=== PATIENT | female | born 1995 | race Caucasian/White ===

== ENCOUNTER 2019-09-15 08:14 | Outpatient (CLI) | payer BC, SELFPAY ==
--- NOTE | ~2019-09-15 | US_ITS ---
EXAMINATION: US breast RT limited HISTORY: Palpable lumps of the upper outer quadrant of the right breast TECHNIQUE: Limited right breast ultrasound is performed. COMPARISON: 01/19/2018, 05/16/2016 FINDINGS: There is no evidence of focal abnormal cystic or solid mass in the vicinity of the reported palpable abnormality of concern in the right breast. IMPRESSION: No specific sonographic correlate is identified for the reported palpable abnormality of concern. Fur ther evaluation at this time should be based on clinical assessment. Continued follow-up physical exa mination is recommended. BI-RADS Category 1: Negative Reviewed, dictated and finalized at location A. IMPRESSION: No specific sonographic correlate is identified for the reported palpable abnor mality of concern. Further evaluation at this time should be based on clinical assessment. Continued follow-up physical examination is recommended. BI-RADS Category 1: Negative
== END 2019-09-15 08:15 ==
LOC: MICIMG 08:15
PROVIDERS: Visit Provider Nurse Practitioner
DX: N63.11 Unspecified lump in the right breast, upper outer quadrant (principal)
CPT/HCPCS: 76642

== ENCOUNTER 2019-10-27 10:18 | Outpatient (CLI) | payer BC, SELFPAY ==
--- NOTE | ~2019-10-27 | US_ITS ---
EXAMINATION: US right upper quadrant EXAM DATE: 10/27/2019 11:03 INDICATION: Right upper quadrant pain. TECHNIQUE: Multiple grayscale and Doppler images of the abdomen right upper quadrant were obtained (b y a technologist who performed the scan) and subsequently reviewed. Comparison is made to prior exami nation from 01/29/2013. FINDINGS: The pancreatic head and body are normal in appearance. The pancreatic tail is not visualized. The l iver has normal echogenicity and contour. There are no focal liver lesions identified. There is no evidence of intrahepatic biliary duct dilation. Portal venous flow was seen in the hepatopedal, nor mal direction and has normal Doppler waveform. No right-sided hydronephrosis. Common bile duct measures 3 mm, which is normal. The gallbladder wall is normal in thickness, with ex pected amount of distention. No sonographic evidence of pericholecystic fluid. There is no cholelit hiases. Technologist performing exam reports patient did not demonstrate sonographic Solorzano's sign. Please note that this sign is less reliable in patients who have received pain medication. IMPRESSION: Unremarkable abdominal ultrasound exam. Reviewed, dictated and finalized at location B.
== END 2019-10-27 10:19 | disposition home or self-care (01) ==
LOC: ANHIMG 10:33
PROVIDERS: PCP Physician Assistant; Visit Provider Physician Assistant
DX: R10.11 Right upper quadrant pain (principal)
CPT/HCPCS: 76705

== ENCOUNTER → 2022-03-30 08:42 | Outpatient (CLI) | payer OTHER, SELFPAY ==
--- NOTE | ~2022-03-30 | US_ITS ---
EXAMINATION: US pelvic complete DATE: 03/30/2022 09:02 INDICATION: Intrauterine device placement. Can't feel strings. TECHNIQUE: Multiple transabdominal and transvaginal sonographic images of the pelvis were obtained. COMPARISON: Ultrasound 03/02/2019 FINDINGS: TRANSABDOMINAL ULTRASOUND: The uterus measures 10.8 x 3.2 x 5.2 cm. There is no free fluid in the pelvis. TRANSVAGINAL ULTRASOUND: The endometrial complex measures 7 mm in thickness. There is an intrauterine device in expected posit ion. The right ovary measures 2.5 x 1.3 x 2.3 cm. The left ovary measures 2.8 x 1.3 x 3.6 cm. IMPRESSION: 1. Intrauterine device in expected position. Reviewed, dictated and finalized at location A. TARY TECHNICIAN
== END ==
PROVIDERS: PCP Family Medicine; Visit Provider Nurse Practitioner
DX: Z30.431 Encounter for routine checking of intrauterine contraceptive device (principal)
CPT/HCPCS: 76856

== ENCOUNTER 2022-08-29 14:31 | Outpatient (CLI) | payer OTHER, SELFPAY ==
--- NOTE | ~2022-08-29 | US_ITS ---
EXAMINATION: US OB <= 14 weeks fetus DATE: 08/29/2022 14:53 INDICATION: Uncertain gestational dates TECHNIQUE: Real-time transabdominal and transvaginal obstetric ultrasound. FINDINGS: No prior studies for comparison. The uterus measures 12.4 x 6.1 x 7.3 cm. There is an intrauterine gestational sac, with pole id entified. The crown rump length measures 2.3 cm, which correlates with a estimated gestational age o f 9 weeks 0 days. heart tones are identified measuring 161 bpm. There is a small subchorionic hemorrhage measuring 10 x 3 x 4 mm. The ovaries are within normal limits. IMPRESSION: 1. SL IUP with an EGA of 9 weeks, 0 days (EDC by current ultrasound of 04/03/2023). 2: Small subchorionic hemorrhage measuring 10 x 3 x 4 mm. Reviewed, dictated and finalized at location L. IMPRESSION: 1. SL IUP with an EGA of 9 weeks, 0 days (EDC by current ultrasound of ). 2: Small subchorionic hemorrhage measuring 10 x 3 x 4 mm.
== END 2022-08-29 14:32 ==
PROVIDERS: PCP Obstetrics & Gynecology Gynecology; Visit Provider Obstetrics & Gynecology Gynecology
DX: Z36.87 Encounter for antenatal screening for uncertain dates (principal); Z3A.09 9 weeks gestation of pregnancy
CPT/HCPCS: 76801

== ENCOUNTER → 2022-09-19 15:03 | Outpatient (CLI) | payer OTHER, SELFPAY ==
--- NOTE | ~2022-09-19 | US_ITS ---
EXAMINATION: US OB limited DATE: 09/19/2022 15:25 INDICATION: Subchorionic hematoma follow-up, first trimester TECHNIQUE: Real-time ultrasound of the pelvis was performed. The interpreting radiologist was not pre sent for the study. COMPARISON: 08/29/2022 FINDINGS: The uterus measures 15.9 x 7.3 x 9.3 cm. There is an intrauterine gestational sac. No persi stent subchorionic hematoma is identified. heart motion is identified measuring 155 beats per m inute (bpm) by M-mode Doppler. IMPRESSION: 1. No persistent subchorionic hematoma identified. Reviewed, dictated and finalized at location L.
== END ==
PROVIDERS: PCP Obstetrics & Gynecology Gynecology; Visit Provider Obstetrics & Gynecology Gynecology
DX: O46.90 Antepartum hemorrhage, unspecified, unspecified trimester (principal); Z3A.00 Weeks of gestation of pregnancy not specified
CPT/HCPCS: 76815

== ENCOUNTER → 2022-11-05 09:16 | Outpatient (CLI) | payer OTHER, SELFPAY ==
--- NOTE | ~2022-11-05 | US_ITS ---
EXAMINATION: US OB /maternal detail DATE: 11/05/2022 10:03 INDICATION: Encounter for screening TECHNIQUE: Multiple obstetric sonographic images performed. COMPARISON: 08/29/2022 FINDINGS: There is a single living fetus in vertex presentation. The placenta is posterior and not low-lying w ith caudal margin >7 cm from the internal cervical os. Normal cervical length of 4.0 cm. Amniotic flu id volume is subjectively normal. The following anatomy was identified as normal: Ventricles, choroid plexus, falx and cava septum pellucidum Cerebellum and cisterna magna Nuchal fold Upper lip Spine Heart Diaphragm Stomach Kidneys Bladder 3 vessel cord and cord insertion Bilateral upper and lower extremities including hands and feet The following biometric data were obtained: BPD: 4.3 cm -> 19 weeks 0 days Head circumference: 16.6 cm -> 19 weeks 2 days Abdominal circumference: 13.5 cm -> 18 weeks 6 days Femur length: 2.7 cm -> 18 weeks 2 days These measurements are concordant. Head circumference to abdominal circumference ratio: 1.23 (normal range 1.09-1.26). Estimated weight: 253 g (+/-) 38 g. or 9 oz. (+/-) 1 oz. IMPRESSION: 1. Single living fetus with vertex presentation with heart rate of 138 bpm. 2. Biometric data concordant within 1 day of the previously estimated gestational age by ultrasound o f 18 weeks 5 day(s) with ultrasound estimated date of delivery (SEBASTIAN) of 04/03/2023 based upon ultrasou nd performed on 08/29/2022. Estimated weight is 45th percentile by Hadlock criteria when 04/03/19 24 is used as the SEBASTIAN. Please correlate with clinical information or earlier ultrasounds for most acc urate SEBASTIAN. 3. Normal survey. Reviewed, dictated and finalized at location A. IMPRESSION: 1. Single living fetus with vertex presentation with heart rate of 138 b pm. 2. Biometric data concordant within 1 day of the previously estimated gestation al age by ultrasound of 18 weeks 5 day(s) with ultrasound estimated date of del emelyn (SEBASTIAN) of 04/03/2023 based upon ultrasound performed on 08/29/2022. Estimate d weight is 45th percentile by Hadlock criteria when 04/03/2023 is used as the SEBASTIAN. Please correlate with clinical information or earlier ultrasounds for most accurate SEBASTIAN. 3. Normal survey.
== END ==
PROVIDERS: PCP Obstetrics & Gynecology Gynecology; Visit Provider Obstetrics & Gynecology Gynecology
DX: Z36.9 Encounter for antenatal screening, unspecified (principal); Z3A.18 18 weeks gestation of pregnancy
CPT/HCPCS: 76805

== ENCOUNTER → 2023-01-27 08:49 | Outpatient (CLI) | payer BC, SELFPAY ==
--- NOTE | ~2023-01-27 | US_ITS ---
EXAMINATION: US OB follow up DATE: 01/27/2023 09:13 INDICATION: Tobacco use during TECHNIQUE: Real-time transabdominal obstetric ultrasound. FINDINGS: Comparison to multiple prior studies sequentially, with oldest reviewed study dated 023. There is a single living fetus in vertex presentation. The placenta is fundal/posterior without plac enta previa. cardiac activity and movement is noted with a heart rate of 135 beats per minute. T he amniotic fluid volume is normal. CELIA measures 16.4 cm. The following biometric data were obtained: BPD: 82mm corresponds to gestational age 33 weeks 1 days. Head circumference: 302mm corresponds to gestational age 33 weeks 4 days. Abdominal circumference: 274mm corresponds to gestational age 31 weeks 3 days. Femur length: 61mm corresponds to gestational age 31 weeks 5 days. Estimated weight: 1859grams +/- 279grams, 81.7%. IMPRESSION: 1. Single living intrauterine in vertex presentation with an estimated gestational age of 30 weeks 4 days by inititial ultrasound. Appropriate interval growth. 2. Normal placenta. Reviewed, dictated and finalized at location B. CAT OPERATOR IMPRESSION: 1. Single living intrauterine in vertex presentation with an estimat ed gestational age of 30 weeks 4 days by inititial ultrasound. Appropriate int erval growth. 2. Normal placenta.
== END ==
PROVIDERS: PCP Advanced Practice Midwife; Visit Provider Advanced Practice Midwife
DX: O99.330 Smoking (tobacco) complicating pregnancy, unspecified trimester (principal); Z3A.30 30 weeks gestation of pregnancy
CPT/HCPCS: 76816

== ENCOUNTER 2023-03-12 10:11 | Outpatient (CLI) | payer BC, SELFPAY ==
--- NOTE | ~2023-03-12 | US_ITS ---
EXAMINATION: US OB follow up DATE: 03/12/2023 10:43 INDICATION: Size greater than dates. TECHNIQUE: Real-time ultrasound of the pelvis was performed. COMPARISON: Ultrasound 01/27/2023, 08/29/22 FINDINGS: There is a single living fetus in vertex presentation. The placenta is fundal and posterior. h eart rate is 130 beats per minute (bpm). The amniotic fluid index is 12.7 cm, which is normal. The following biometric data were obtained: Biparietal diameter (BPD): 9.2 cm; head circumference (HC): 32.4 cm; abdominal circumference (AC): 11 .0 cm; femur length (FL): 6.9 cm. These measurements are concordant. Estimated weight is 2960 g +/- 444 g, which correlates with the 46th percentile when 04/03/23 is used as estimated date of delivery. As single measurements, these parameters are each equal to the following estimated gestational ages: BPD: 37 weeks 2 days. HC: 36 weeks 5 days. AC: 36 weeks 5 days. FL: 35 weeks 4 days. estimated gestational age based solely on measurements from this exam is 36 weeks 4 days +/- 2 weeks 4 days. IMPRESSION: 1. Single living fetus in vertex presentation. 2. Estimated weight is 2960 g +/- 444 g, which correlates with the 46th percentile when 4 is used as estimated date of delivery. This date was set by ultrasound on 08/29/2022. Reviewed, dictated and finalized at location E. UCT SAFETY COORDINATOR IMPRESSION: 1. Single living fetus in vertex presentation. 2. Estimated weight is 2960 g +/- 444 g, which correlates with the 46th percentile when 04/03/23 is used as estimated date of delivery. This date was se t by ultrasound on 08/29/2022.
== END 2023-03-12 10:12 ==
LOC: MICIMG 10:12
PROVIDERS: PCP Advanced Practice Midwife; Visit Provider Advanced Practice Midwife
DX: O36.63X0 Maternal care for excessive fetal growth, third trimester, not applicable or unspecified (principal); Z3A.36 36 weeks gestation of pregnancy
CPT/HCPCS: 76816

== ENCOUNTER 2023-03-28 05:05 | Inpatient (IN) | payer BC, SELFPAY ==
[2023-03-28] VITALS (127 sets, daily range): BP systolic 46–236; BP diastolic 30–184; PULSE 30–224; RESP 16–20; TEMP 36.3–37.3; O2SAT 45–100
[2023-03-28 06:10] LABS: Basophils Percent Auto 0.3 % (0.2-1.2); Eosinophils Percent Auto 0.4 % (0-4.4); Hematocrit 36.1 % (37.0-47.0); Hemoglobin 11.2 g/dL (12.0-15.0); Immature Granulocyte Absolute 0.03 K/mm3 (0.00-0.031); Immature Granulocyte Percent A 0.4 % (0-0.5); Lymphocytes Absolute Auto 1.43 K/mm3 (0.9-3.2); Lymphocytes Percent Auto 19.2 % (18.3-44.2); Mean Corpuscular Volume 90.3 fl (80-100); Mean Platelet Volume 12.5 fl (7.4-10.4); Monocytes Absolute Auto 0.3 K/mm3 (0.1-0.6); Monocytes Percent Auto 3.8 % (2.6-8.5); Neutrophils Absolute Auto 5.6 K/mm3 (1.3-6.7); Neutrophils Percent Auto 75.9 % (45.5-73.1); Platelet Count Result 160 k/mm3 (150-375); Red Cell Distribution Width 12.9 % (11.5-14.5); White Blood Count 7.4 K/mm3 (4.5-10.0)
[2023-03-28] MEDS: LACTATED RINGERS 1,000 ML 125 ML IV CONT ×2 (06:20→10:20)
[2023-03-28] MEDS: OXYTOCIN 30 UNITS/NS 500 ML 30 UNITS/500 ML BAG IV CONT (06:20)
--- NOTE | 2023-03-28 07:44 | WPDOBADMIT ---
Obstetrics - Admit Note Admission Note: record reviewed. No pertinent additions to the history and/or any subsequent changes in the physical findings that are not consistent with the expected course of the were found. Additions to the history and/or subsequent changes in the physical findings follow. None.
--- NOTE | 2023-03-28 07:44 | PM.OBPNLAB ---
Pain Control Date/time seen: 03/28/23 07:40 Pain control: tolerating well Pelvic Exam Dilation (cm): 4 Effacement (%): 75 station: -2 Amniotic membrane status: Intact Comments: head well applied to cervix Contractions Monitor mode: External Contraction pattern: Irregular Status status: Category l Assessment and Plan Assessment: induction ongoing Comments: CNM to bedside. Discussed plan of care an option for amniotomy. Discussed risks, benefits, and expectations of breaking water. Patient is agreeable. Amniotomy performed and there was a moderate return of clear amniotic fluid. Patient tolerated procedure well.
--- NOTE | 2023-03-28 08:23 | WPDANESEPP ---
Anes - Eval Pre Procedure Procedure: Labor epidural Date/Time: 03/28/23 08:23 Surgeon: Madelyn Preop Diagnosis: Pain during labor Pre Op Diagnosis: IOL Patient Data Age: 27 Gender: F Height: 1.78 m Weight: 95 kg Last Vital Signs Temp 36.6 C 03/28/23 07:40 Pulse 68 03/28/23 08:01 Resp 17 03/28/23 07:40 BP 107/68 03/28/23 08:01 Allergies Allergy/AdvReac Type Severity Reaction Status Date / Time No Known Allergies Allergy Verified 03/12/23 12:37 Home Medications Medication Instructions Recorded Confirmed Type vits no.126-ferrous fum 1 tablet PO DAILY 03/12/23 03/12/23 History 28 mg iron-folic acid 800 mcg tablet (Classic ) ergocalciferol (vitamin D2) 1,250 03/28/23 History mcg (50,000 unit) capsule ergocalciferol (vitamin D2) 1,250 03/28/23 History mcg (50,000 unit) capsule Laboratory Tests 03/28/23 05:45 WBC 7.4 K/mm3 (4.5-10.0) RBC 4.00 L M/mm3 (4.2-5.4) Hgb 11.2 L g/dL (12.0-15.0) Hct 36.1 L % (37.0-47.0) MCV 90.3 fl (80-100) MCH 28.0 pg (26-34) MCHC 31.0 L g/dl (32-36) RDW 12.9 % (11.5-14.5) Plt Count 160 k/mm3 (150-375) MPV 12.5 H fl (7.4-10.4) Immature Gran % (Auto) 0.4 % (0-0.5) Neut % (Auto) 75.9 H % (45.5-73.1) Lymph % (Auto) 19.2 % (18.3-44.2) [place] % (Auto) 3.8 % (2.6-8.5) Eos % (Auto) 0.4 % (0-4.4) Baso % (Auto) 0.3 % (0.2-1.2) Lymph # (Auto) 1.43 K/mm3 (0.9-3.2) [place] # (Auto) 0.3 K/mm3 (0.1-0.6) Eos # (Auto) 0.0 K/mm3 (0-0.3) Baso # (Auto) 0.0 K/mm3 (0.0-0.1) Abs Immat Gran (auto) 0.03 K/mm3 (0.00-0.031) Absolute Neuts (auto) 5.6 K/mm3 (1.3-6.7) Absolute Nucleated RBC 0.0 K/mm3 (0.0-0.012) Nucleated RBC % 0.0 % (0.0-0.2) RPR Pending Blood Type A Positive Antibody Screen Negative Patient hx anesthesia problems: none Family hx anesthesia problems: none Results Review: All pre-operative results and documents have been reviewed as part of the pre-operative evaluation. [facility] Family History Family History Grandparent Cancer Grandparent Cancer Grandparent Diabetes mellitus Social History Social History Smoking status: Current every day smoker Tobacco type: e-cigarettes/vaping Substance use: never Do You Feel Safe in your Home?: Yes Lack of Transportation: No Lack of Food: Never True Current Housing: I Have Housing Concerned About Future Housing: No Difficulty Paying Gas/Electric Bills: No Difficulty Paying for Meds: No Currently Unemployed: No Education: Bachelor's Degree Difficulty w/ Childcare or Family Care: No Spiritual care concerns: No Exam Day of Procedure 03/28/23 08:23 Patient weight: overweight Heart: regular rate and rhythm Lungs: clear to auscultation Airway: Mallampati scale Neurological: alert and oriented
[2023-03-28 11:58] LABS: Rapid Plasma Reagin Non-Reactive (NonReactive)
--- NOTE | 2023-03-28 13:20 | PM.OBPRVD ---
OB - Vaginal Delivery Note Procedure Delivery date: 03/28/23 Events: Other (MIL at 39 wks) Induction method: AROM and Per Pitocin Protocol Delivery monitor: External FHT and External Uterine Route of delivery: Laceration Description: Perineal - 2nd Degree Delivery repair: vicryl (3-0) Specimen: No Quantitative Blood Loss (ml): 150 Anesthesia type: Epidural Disposition: Floor Complications: No immediate complications [place] Baby Date of : 03/28/23 Weeks of gestation at delivery: 39 gender: Male presentation: vertex position: Right Occiput Anterior Placenta delivery description: Spontaneous Cord Vessel Description: 3 Vessels and Delayed Cord Clamping score one minute: 8 score five minutes: 9
--- NOTE | 2023-03-28 13:22 | PM.OBDSVD ---
DS: Admitting Diagnosis Discharge Date 03/30/23 Admitting Diagnosis IUP 39 wks for [place]IA DS: Discharge Diagnosis Discharge Diagnosis (1) (normal spontaneous vaginal delivery): Code(s): O80 - Encounter for full-term uncomplicated delivery Status: Acute OB - DS: Summary OB Procedures : Ultrasound OB Procedures Intrapartum: Spontaneous Vag Delivery OB Procedures: : None Peripartum Data Infant Delivery Method: Natural Vaginal Laceration Description: Perineal - 2nd Degree complications: none and uterine atony ( two hours ) Status at Discharge Functional status at discharge: independent ambulation Overall status at discharge: patient is progressing back to baseline Time Spent with Patient Time attestation: Total time spent providing and/or coordinating discharge services: DS: Data Data Completed and Pending Labs on day of discharge: Labs from last 24 hours 03/28/23 05:45 WBC 7.4 RBC 4.00 L Hgb 11.2 L Hct 36.1 L MCV 90.3 MCH 28.0 MCHC 31.0 L RDW 12.9 Plt Count 160 MPV 12.5 H Immature Gran % (Auto) 0.4 Neut % (Auto) 75.9 H Lymph % (Auto) 19.2 [place] % (Auto) 3.8 Eos % (Auto) 0.4 Baso % (Auto) 0.3 Lymph # (Auto) 1.43 [place] # (Auto) 0.3 Eos # (Auto) 0.0 Baso # (Auto) 0.0 Abs Immat Gran (auto) 0.03 Absolute Neuts (auto) 5.6 Absolute Nucleated RBC 0.0 Nucleated RBC % 0.0 RPR Non-reactive Blood Type A Positive Antibody Screen Negative Discharge Plan Discharge Attending physician on discharge: Ying Joshi Discharging Clinician: Bir Bryant Anticipated Discharge Date/Time: 03/30/23 10:00 Patient Disposition: Home, Self-Care Activity: may shower and pelvic rest Diet: regular Wound Care Instructions: follow printed instructions Discharge Instructions: Education: Mom and Baby Guide Given to: Mother Follow-Up: Call your delivering provider's office for an appointment to be seen in: 6 Weeks [facility]. Appointment Date/Time: March 31, 2023 at 11:00 am What to expect at your follow-up visit: Physical Assessment Call [phone] if you are unable to keep your appointment time. BREAST CARE: * Wear a snug supportive bra. * For engorgement discomfort: Breast Feeding: * Apply warm moist washcloths * Express milk as needed to relieve engorgement * Wear loose clothing * For sore nipples: * Identify correct latch-on * Apply warm moist washcloths before and after nursing * Air dry nipples after nursing * May apply Lansinoh cream to nipples EPISIOTOMY/PERINEAL CARE: * Until bleeding stops, use your agapito bottle after urinating * Change your pad frequently throughout the day * You may take sitz baths several times a day (fill your bathtub with warm water and soak for 20 minutes.) Do NOT bathe in the water * No tub baths until seen by your physician - You may shower ACTIVITY: * Rest as much as possible. * Do not exercise or lift anything heavier than your baby (such as laundry or other children.) * Avoid stairs or driving as much as possible. * Do not put anything into the vagina. No douching, tampons, or sexual activity until seen by physician. NOTIFY PHYSICIAN IF YOU HAVE ANY QUESTIONS OR IF ANY OF THE FOLLOWING SYMPTOMS OCCUR: * If your episiotomy or incision becomes red, swollen, or more painful than what you have experienced in the hospital. * If your vaginal bleeding becomes foul smelling. * If your vaginal bleeding becomes more heavy than a period or if your bleeding changes from pink to bright red. However, you may pass an occasional walnut-sized clot once or twice for the first week . * If you experience a sharp, shooting pain in you calves. * If you discover a hard, reddened area on your breast or if you experience
[2023-03-28] MEDS: METHYLERGONOVINE MALEATE 0.2 MG/ML VIAL (15:09)
[2023-03-28] MEDS: miSOPROStol 200 MCG TABLET 1000 MCG (15:27)
[2023-03-28 15:40] LABS: Basophils Percent Auto 0.1 % (0.2-1.2); Eosinophils Percent Auto 0.1 % (0-4.4); Hematocrit 34.3 % (37.0-47.0); Hemoglobin 10.4 g/dL (12.0-15.0); Immature Granulocyte Absolute 0.06 K/mm3 (0.00-0.031); Immature Granulocyte Percent A 0.4 % (0-0.5); Lymphocytes Percent Auto 8.2 % (18.3-44.2); Mean Corpuscular HGB Conc 30.3 g/dl (32-36); Mean Corpuscular Volume 92.5 fl (80-100); Mean Platelet Volume 12.4 fl (7.4-10.4); Monocytes Absolute Auto 0.7 K/mm3 (0.1-0.6); Monocytes Percent Auto 4.3 % (2.6-8.5); Neutrophils Absolute Auto 13.8 K/mm3 (1.3-6.7); Neutrophils Percent Auto 86.9 % (45.5-73.1); Platelet Count Result 156 k/mm3 (150-375); Red Blood Count 3.71 M/mm3 (4.2-5.4); Red Cell Distribution Width 13.2 % (11.5-14.5); White Blood Count 15.9 K/mm3 (4.5-10.0)
--- NOTE | 2023-03-28 15:50 | PM.OBPNVD ---
OB - PN: Subj Subjective Date/time seen: 03/28/23 15:50 Interval history: Called 2hours after delivery with nurse reporting patient passing 350cc of clots and requesting me to come for evaluation. She had just given Methergine prior to calling me. On my arrival the patient had also been given 1000mcg of Cytotec, a 2nd IV had been started, and labs have been drawn. I recommended sending the labs. Pelvic exam reveals the uterus to be firm at the U, however, there are several large clots in the vagina and in the cervix. I was able to remove these. The patient was observed and no active bleeding noted. Pads were changed and the patient cleaned up and continued to be observed. Patient was checked after 5minutes and no additional bleeding noted. I will continue to observe for 10 more minutes and if stable will leave the unit. The total additional blood loss per staff weighing items is 1650 cc. OB - PN: Obj Data Labs 03/28/23 15:35 Labs: Laboratory Results - last 24 hr 03/28/23 03/28/23 05:45 15:35 WBC 7.4 15.9 H RBC 4.00 L 3.71 L Hgb 11.2 L 10.4 L Hct 36.1 L 34.3 L MCV 90.3 92.5 MCH 28.0 28.0 MCHC 31.0 L 30.3 L RDW 12.9 13.2 Plt Count 160 156 MPV 12.5 H 12.4 H Immature Gran % (Auto) 0.4 0.4 Neut % (Auto) 75.9 H 86.9 H Lymph % (Auto) 19.2 8.2 L [place] % (Auto) 3.8 4.3 Eos % (Auto) 0.4 0.1 Baso % (Auto) 0.3 0.1 L Lymph # (Auto) 1.43 1.30 [place] # (Auto) 0.3 0.7 H Eos # (Auto) 0.0 0.0 Baso # (Auto) 0.0 0.0 Abs Immat Gran (auto) 0.03 0.06 H Absolute Neuts (auto) 5.6 13.8 H Absolute Nucleated RBC 0.0 0.0 Nucleated RBC % 0.0 0.0 RPR Non-reactive Blood Type A Positive Antibody Screen Negative OB - PN A/P Time Spent With Patient Time: Total time spent is greater than 50% in coordination of care (as documented) at patient's floor/unit and/or counseling patient:
[2023-03-28 15:58] LABS: Prothrombin Time 13.8 Seconds (11.1-14.7)
[2023-03-28 15:59] LABS: Fibrinogen 412 mg/dl (215-510); Partial Thromboplastin Time 25.2 SECONDS (22.3-36.8)
[2023-03-28] MEDS: LACTATED RINGERS 1,000 ML 200 ML IV CONT (16:00)
[2023-03-28] MEDS: OXYTOCIN 30 UNITS/NS 500 ML 30 UNITS/500 ML BAG 200 UNITS IV CONT (16:00)
[2023-03-28 16:06] LABS: D Dimer 5.68 ug/mL (<0.48)
--- NOTE | 2023-03-28 16:51 | PC.NURSE ---
1511- Dr. Joshi called to evaluate patient bleeding.
[2023-03-28] MEDS: IBUPROFEN 600 MG TABLET PO (20:17)
[2023-03-29] VITALS: BP 101/61; PULSE 62; RESP 18; TEMP 37; O2SAT 100
[2023-03-29 04:00] VITALS: BP 98/68; PULSE 63; RESP 18; TEMP 36.7; O2SAT 99
[2023-03-29 05:44] LABS: Hematocrit 28.7 % (37.0-47.0); Hemoglobin 9.1 g/dL (12.0-15.0)
[2023-03-29] MEDS: IBUPROFEN 600 MG TABLET PO ×2 (05:45→17:34)
--- NOTE | 2023-03-29 08:09 | PM.OBPNVD ---
OB - PN: Subj Subjective Date/time seen: 03/29/23 08:09 Patient comments: no complaints, pain well controlled and other (normal pp bleeding) [place] baby status: doing well OB - PN: Obj Data Labs 03/29/23 04:42 Labs: Laboratory Results - last 24 hr 03/28/23 03/28/23 03/29/23 05:45 15:35 04:42 WBC 15.9 H RBC 3.71 L Hgb 10.4 L 9.1 L Hct 34.3 L 28.7 L MCV 92.5 MCH 28.0 MCHC 30.3 L RDW 13.2 Plt Count 156 MPV 12.4 H Immature Gran % (Auto) 0.4 Neut % (Auto) 86.9 H Lymph % (Auto) 8.2 L [place] % (Auto) 4.3 Eos % (Auto) 0.1 Baso % (Auto) 0.1 L Lymph # (Auto) 1.30 [place] # (Auto) 0.7 H Eos # (Auto) 0.0 Baso # (Auto) 0.0 Abs Immat Gran (auto) 0.06 H Absolute Neuts (auto) 13.8 H Absolute Nucleated RBC 0.0 Nucleated RBC % 0.0 PT 13.8 INR 1.0 APTT 25.2 Fibrinogen 412 D-Dimer 5.68 H RPR Non-reactive OB - PN A/P Plan day: 1 Plan: routine care Time Spent With Patient Time: Total time spent is greater than 50% in coordination of care (as documented) at patient's floor/unit and/or counseling patient: Exam : Bimanual exam- vagina & uterus: other (Uterus firm, nt @U)
[2023-03-29] MEDS: MULTIVIT/MIN/PREN/FOL AC/IRON TABLET 1 TAB PO (09:27)
[2023-03-29 09:28] VITALS: BP 103/53; PULSE 66; RESP 16; TEMP 36.6; O2SAT 100
[2023-03-29] MEDS: ACETAMINOPHEN 325 MG TABLET 650 MG PO (09:28)
[2023-03-29] MEDS: POLYSACCHARIDE IRON COMPLEX 150 MG CAPSULE PO ×2 (09:28→17:34)
--- NOTE | 2023-03-29 10:06 | WPDANLDPN2 ---
Anes-Prog Note L&D Date/Time: 03/29/23 10:06 Comfortable throughout: labor and delivery Neuraxial method: epidural Epidural/Spinal procedure site: clean & non-tender Neuro status: Neuro function grossly intact. Cardiovascular status: normal Respiratory status: normal Airway patency: baseline Mental status: baseline Post-Op hydration status: normal Vital Signs: Last Vital Signs Temp 98.1 F 03/29/23 04:00 Pulse 63 03/29/23 04:00 Resp 18 03/29/23 04:00 BP 98/68 L 03/29/23 04:00 Pulse Ox 99 03/29/23 04:00 O2 Del Method Room Air 03/28/23 20:00 Pain score (VAS): 0 I/O: Intake & Output 03/28/23 03/29/23 03/29/23 23:59 07:59 15:59 Intake Total 1000 2500 Output Total 3839 6079 Balance -1555 575 Patient feedback: Patient satisfied with anesthetic care.
[2023-03-29] MEDS: DOCUSATE SODIUM 100 MG CAPSULE PO (17:34)
[2023-03-29 17:35] VITALS: BP 112/61; PULSE 64; RESP 18; TEMP 36.5; O2SAT 100
--- NOTE | 2023-03-29 19:32 | PC.NURSE ---
0928 Tariq leaked on the floor. Used 1 bath towel to wipe it up.
[2023-03-29 19:40] VITALS: BP 100/60; PULSE 62; RESP 16; TEMP 36.5
[2023-03-30 00:20] VITALS: BP 104/61; PULSE 56
[2023-03-30] MEDS: IBUPROFEN 600 MG TABLET PO ×2 (00:22→12:43)
[2023-03-30 04:50] VITALS: BP 103/60; PULSE 59
[2023-03-30] MEDS: MULTIVIT/MIN/PREN/FOL AC/IRON TABLET 1 TAB PO (07:50)
[2023-03-30] MEDS: POLYSACCHARIDE IRON COMPLEX 150 MG CAPSULE PO (07:50)
[2023-03-30] MEDS: DOCUSATE SODIUM 100 MG CAPSULE PO (07:50)
[2023-03-30 08:00] VITALS: BP 95/57; PULSE 63; RESP 16; TEMP 36.4; O2SAT 100
--- NOTE | 2023-03-30 09:15 | PM.OBPNVD ---
OB - PN: Subj Subjective Date/time seen: 03/30/23 0850 Interval history: Doing well. Urinating without difficulty. Denies passing any large clots. Denies dizziness with ambulating. Tolerating po food and fluids. Bonding with infant. well Patient comments: no complaints and pain well controlled [place] baby status: doing well and nursing well feeding status: exclusively breast feeding OB - PN: Obj Data Labs 03/29/23 04:42 OB - PN A/P Plan day: 2 Plan: discharge home Time Spent With Patient Time: Total time spent is greater than 50% in coordination of care (as documented) at patient's floor/unit and/or counseling patient: Review of Systems Review of Systems: All systems reviewed & are unremarkable except as noted in HPI and below Exam Narrative: Alert and oriented. Mood is pleasant and cooperative. Perineum with minimal edema. Fundus firm and below umbilicus. Const: General: cooperative, healthy appearing, no acute distress and alert Orientation/consciousness: patient oriented x3 Limitations: no limitations Resp: Effort & Inspection: normal respiratory effort and able to speak in complete sentences Auscultation: clear to auscultation bilaterally Cardio: Rate: regular rate GI: Inspection: normal to inspection Auscultation: normal bowel sounds : General: Yes bladder normal to palpation External Female Exam: other (lochia WNL) Bimanual exam- vagina & uterus: bladder normal to palpation Other: Fundus firm and below U Skin: General skin exam: normal color and no rashes or lesions noted Neuro: General: patient oriented x3 and moves all extremities Cognition (Neuro): normal cognition Extrem: General: normal to inspection and no calf tenderness Psych: Appearance: grossly normal Mental Status: mental status grossly normal Affect: normal affect Thought process: Normal thought process present
[2023-04-01 11:22] VITALS: BP 116/58; PULSE 81; RESP 18; TEMP 37.1; O2SAT 100
== END 2023-03-30 13:22 | disposition home or self-care (01) | DRG 807 ==
LOC: ANHLDR 13:23 → ANHOB2 18:31
PROVIDERS: Admitting Provider Obstetrics & Gynecology Gynecology; Visit Provider Obstetrics & Gynecology Gynecology
DX: O70.1 Second degree perineal laceration during delivery (principal); Z37.0 Single live birth; Z3A.39 39 weeks gestation of pregnancy
CPT/HCPCS: 36415; 85014; 85018; 85025; 85380; 85384; 85610; 85730; 86592; 86850; 86900; 86901; A9270; J2210; J2590; J2795; J7120